=== PATIENT | male | born 1960 | race Caucasian/White ===

== ENCOUNTER → 2019-11-21 12:41 | Outpatient (CLI) | payer BC, SELFPAY ==
[2013-07-08 10:13] VITALS: BMI 30.4
[2019-11-21 14:27] LABS: Blood Gas Specimen Type ART; SITE LF RAD
[2019-11-21 14:28] LABS: O2 Delivery Device RA; PO2 67 mmHG (75-100); pH 7.45 (7.35-7.45)
[2019-11-21 14:29] LABS: Base Excess 3 mmol/L (-2 to +2); SO2 94 % (95-99)
[2019-11-21 16:56] LABS: pCO2 39.1 mmHg (35-45)
[2019-11-21 16:57] LABS: Bicarbonate 27.1 mmol/L (22-26); Total Carbon Dioxide 28 mmol/L
== END ==
PROVIDERS: PCP Family Medicine
DX: R06.02 Shortness of breath (principal)
CPT/HCPCS: 36600; 82803; C9803